=== PATIENT | male | born 1945 | race Caucasian/White ===

== ENCOUNTER 2020-06-25 09:32 | Outpatient (REF) | payer MEDICARE, SELFPAY ==
[2020-06-25 10:10] LABS: MANUAL DIFF FLAG NO
[2020-06-25 10:12] LABS: Basophils Absolute Auto 0.1 X10*3/uL (0.0-0.2); Basophils Percent Auto 0.9 % (0-2); Eosinophils Absolute Auto 0.4 X10*3/uL (0.0-0.4); Eosinophils Percent Auto 4.3 % (0-4); Hematocrit 49.4 % (42-52); Hemoglobin 16.6 g/dl (14.0-18.0); Imm Gran Abs Auto 0.02 X10*3/uL (0.00-0.03); Imm Gran Pct Auto 0.2 % (0.0-0.4); Lymphocytes Percent Auto 24.7 % (20-40); Mean Corpuscular HGB Conc 33.6 g/dl (31.0-36.0); Mean Corpuscular Hemoglobin 31.2 pg (27.0-33.0); Mean Corpuscular Volume 92.9 fL (80-98); Mean Platelet Volume 10.9 fL (9.4-12.4); Monocytes Absolute Auto 0.6 X10*3/uL (0.1-1.2); Neutrophils Absolute Auto 5.2 X10*3/uL (2.0-8.3); Neutrophils Percent Auto 62.9 % (45-73); Platelet Count 237 X10*3/uL (160-400); Red Blood Count 5.32 X10*6/uL (4.60-5.80); Red Cell Distribution Width 11.7 % (11.0-16.0); White Blood Count 8.2 X10*3/uL (4.8-10.8)
[2020-06-25 10:33] LABS: Alanine Aminotransferase 29 U/L (0-40); Albumin Level 4.3 g/dL (3.5-5.0); Alkaline Phosphatase 61 U/L (39-117); Anion Gap 12 (12-20); Aspartate Amino Transferase 28 U/L (5-37); Bilirubin Total 1.3 mg/dL (0.0-1.0); Blood Urea Nitrogen 13 mg/dL (9-16); Calcium 8.9 mg/dL (8.4-10.2); Carbon Dioxide 28 mmol/L (22-29); Chloride 104 mmol/L (96-108); Cholesterol 117 mg/dL; Estimated Glomerular Filt Rate > 60; Glucose Fasting 98 mg/dL (60-99); HDL Cholesterol 40 mg/dL; LDL Cholesterol Calculated 56 mg/dl; Potassium 4.6 mmol/l (3.3-5.1); Sodium 139 mmol/L (135-145); Total Protein 7.3 g/dL (6.5-8.0); Triglycerides 108 mg/dL
[2020-06-25 10:50] LABS: Glucose Urine UA NEG (NEG); Leukocyte Esterase Urine NEG (NEG); Nitrite Urine NEG (NEG); Specific Gravity - Urine 1.025 (1.005-1.025); Urine Blood NEG (NEG); Urine Ketones NEG (NEG); Urine Protein NEG (NEG-TRACE)
[2020-06-25 10:51] LABS: Appearance Urine CLEAR; Color Urine YELLOW
[2020-06-25 10:52] LABS: Prostate Specific Antigen 1.49 ng/mL (<0.05-4.0)
== END 2020-06-25 09:33 | disposition home or self-care (01) ==
LOC: HO.10HDL 09:32
PROVIDERS: PCP Internal Medicine; Visit Provider Internal Medicine
DX: I25.10 Atherosclerotic heart disease of native coronary artery without angina pectoris (principal); I10 Essential (primary) hypertension; N40.0 Benign prostatic hyperplasia without lower urinary tract symptoms; E78.00 Pure hypercholesterolemia, unspecified
CPT/HCPCS: 36415; 80053; 80061; 81003; 84153; 85025

== ENCOUNTER 2020-10-23 06:53 | Day surgery (SDC) | payer MEDICARE, SELFPAY ==
[2020-10-16 10:50] VITALS: BMI 31.1
--- NOTE | 2020-10-18 13:45 | HO.ANESPROP2 ---
Documented by User: Teri Casanova 10/19/20 09:43 HPI - Anesthesia Eval Consult details Narrative: 74yo M for Colonoscopy 01/2020 Cardiol OV - stable for 2 year f/u [facility] Past Medical History Medical History CAD (coronary artery disease) Elevated cholesterol HTN (hypertension) Hx of gout On beta jorden at home Surgical History Surgical History Hx of colonoscopy S/P coronary artery stent placement Social History Social History Are you a primary residential care facility manager to a significant other at home: No Do you presently have visiting nurse or other home services: No Smoking Status: Never smoker Use of substances other than those prescribed or required for medical reasons: No Have you been hit, kicked, punched, or otherwise hurt by someone within the past year? If so, by whom?: No Advance Directives: No Advance Directives Information Provided: No Advance Directives on File: No Recently lost weight without trying: No Meds Allergies Allergy/AdvReac Type Severity Reaction Status Date / Time No Known Allergies Allergy Unverified 10/15/20 15:52 Home Medications Medication Instructions Recorded Confirmed Last Taken Type amlodipine-benazepril 1 cap PO DAILY 10/15/20 10/15/20 Unknown History aspirin [Aspir-81] 81 mg PO DAILY 10/15/20 10/15/20 Unknown History atorvastatin 1 tab PO DAILY 10/15/20 10/15/20 Unknown History metoprolol succinate 1 tab PO DAILY 10/15/20 10/15/20 Unknown History kguinjzzyiqf-[id number]-[id number] 1 tab PO DAILY 10/15/20 10/15/20 Unknown History [Multivitamin 50 Plus] Exam Exam Date and Time: October 18, 2020 1345 Height,Weight and Vital Signs: Height 6 ft Weight 104.326 kg Narrative Narrative: EKG 01/2020 SB at [address]-T changes Assessment and Plan Assessment Anesthesia Assessment: Chart Reviewed Documented by User: Simi Galo 10/23/20 07:45 [facility] Past Medical History Medical History CAD (coronary artery disease) Elevated cholesterol HTN (hypertension) Hx of gout On beta jorden at home Surgical History Surgical History Hx of colonoscopy S/P coronary artery stent placement Social History Social History Are you a primary residential care facility manager to a significant other at home: No Do you presently have visiting nurse or other home services: No Smoking Status: Never smoker Use of substances other than those prescribed or required for medical reasons: No Have you been hit, kicked, punched, or otherwise hurt by someone within the past year? If so, by whom?: No Advance Directives: No Advance Directives Information Provided: No Advance Directives on File: No Recently lost weight without trying: No Meds Allergies Allergy/AdvReac Type Severity Reaction Status Date / Time No Known Allergies Allergy Unverified 10/15/20 15:52 Home Medications Medication Instructions Recorded Confirmed Last Taken Type amlodipine-benazepril 1 cap PO DAILY 10/15/20 10/15/20 Unknown History aspirin [Aspir-81] 81 mg PO DAILY 10/15/20 10/15/20 Unknown History atorvastatin 1 tab PO DAILY 10/15/20 10/15/20 Unknown History metoprolol succinate 1 tab PO DAILY 10/15/20 10/15/20 Unknown History [id number] 1 tab PO DAILY 10/15/20 10/15/20 Unknown History [Multivitamin 50 Plus] Exam Airway Mallampati Class: II TM Dist: >3cm Neck ROM: Full Assessment and Plan Assessment Anesthesia Assessment: Anesthesia Plan Discussed and Chart Reviewed Final Anesthetic Review NPO: Yes ASA Class: III Final Preanesthetic Review: No Changes in Pt Med Stat, Meds/Allgs Chart Reviewed, Consent Obtained/Reviewed and Anes Risks/Benef Reviewed Patient Risk: Low Procedure Risk: Low Assessment/Block/Sedation in SS: Assess/Block/Sedation- Anesthetic Plan Anesthetic Plan: MAC: Disposition: Standard PACU
[2020-10-23 07:07] VITALS: BP 146/79; PULSE 66; RESP 18; TEMP 36.2; O2SAT 97
[2020-10-23] MEDS: Lactated Ringers 1,000 ML 100 ML IVCONT (07:33)
--- NOTE | 2020-10-23 07:57 | P.HPSUR_ITS ---
Pre-Procedural Eval Section B Chief Complaint: screening Details of Present Illness: screening Relevant Family History (Specify if Yes): No Relevant Social History: None Present Medications: None Medical History: No relevant PMH History of Previous Operations: No relevant previous surgery Allergies: Allergies Allergy/AdvReac Type Severity Reaction Status Date / Time No Known Allergies Allergy Unverified 10/15/20 15:52 Review of Systems Sugical H&P ROS: Negative: Constitution, Cardiovascular, Respiratory, Neurological, Psychiatric, Hem-Onc, Allergic/Immunologic, Gastrointestinal, Genitourinary, Musculoskeletal, Integumentary, Endocrine and Eyes/Ears/No se/Throat Exam Surgical H&P Exam: Normal: HEENT, Normal: Heart, Normal: Lungs, Normal: Extremities, Normal: Abdomen, Normal: Skin and Normal: Neurological Plan Diagnosis/Plan: Unchanged I have reviewed the history and physical and performed a pertinent physical examination on my patient. No changes have occurred unless specified.
[2020-10-23 08:30] VITALS: BP 108/65; PULSE 52; RESP 16; TEMP 36.3; O2SAT 94
--- NOTE | 2020-10-23 08:35 | PM.OP ---
Brief Operative Note Date of Service: 10/23/20 Pre-op diagnosis: screening Post-op diagnosis: other (colon polyps) Procedure: colonoscopy Surgeon: Jethro Lopez Anesthesia: MAC Estimated blood loss (mL): 5 Pathology: other (polyps x3) Condition: stable Disposition: PACU
[2020-10-23 08:45] VITALS: BP 126/77; PULSE 53; RESP 17; TEMP 36.3; O2SAT 96
--- NOTE | 2020-10-23 09:18 | OP_ITS ---
SURGEON: Jethro Lopez MD INDICATIONS: Colon cancer screening. PREOPERATIVE DIAGNOSIS: POSTOPERATIVE DIAGNOSIS: PROCEDURE PERFORMED: Colonoscopy to the terminal ileum with snare polypectomy and biopsy. ESTIMATED BLOOD LOSS: COMPLICATIONS: ANESTHESIA: Medications, monitored anesthesia care. ASSISTANTS: SPECIMENS: DESCRIPTION OF PROCEDURE: History and physical performed. The risks and benefits of the procedure were explained to the patient. Informed consent was obtained. The patient was placed in left lateral decubitus position. A digital rectal exam was performed and was found to be normal. The Olympus pediatric video colonoscope was introduced into the rectum and advanced to the cecum without difficulty. The cecum was identified by transillumination, palpation, and identification of ileocecal valve. Examination was performed and the scope was removed. He tolerated the procedure well and was taken to the recovery area in stable condition. FINDINGS: The terminal ileum was examined and appeared normal. The visualized colonic mucosa was within normal limits without evidence of masses or ulcers. Three polyps were identified and removed. The first was located at 45 cm measuring approximately 8 mm and was removed with snare. The second was located at 35 cm measuring less than 5 mm and was removed with biopsy forceps. The third was located at 20 cm, measured 6 mm, and was removed with a snare. No other polyps were identified. The quality of the prep was good. Retroflexed examination did show some small internal hemorrhoids. IMPRESSION: Colon polyps. RECOMMENDATION: Follow up the biopsy results. MD LUIS MIGUEL Hunt/BOUCHRA / [id number]
== END 2020-10-23 09:30 | disposition home or self-care (01) ==
PROVIDERS: PCP Internal Medicine; Visit Provider Internal Medicine Gastroenterology
PROC: 0DJD8ZZ Inspection of Lower Intestinal Tract, Via Natural or Artificial Opening Endoscopic (ICD-10-PCS; CPT 45378; principal; 2020-10-23 08:00)
DX: Z12.11 Encounter for screening for malignant neoplasm of colon (principal); D12.5 Benign neoplasm of sigmoid colon; K63.5 Polyp of colon; K64.8 Other hemorrhoids; I10 Essential (primary) hypertension; Z79.899 Other long term (current) drug therapy
CPT/HCPCS: 45385; 45380; 88305

== ENCOUNTER 2021-04-25 16:27 | Outpatient (REF) | payer MEDICARE, SELFPAY ==
[2021-04-25 16:47] LABS: MANUAL DIFF FLAG NO
[2021-04-25 16:56] LABS: Basophils Absolute Auto 0.1 X10*3/uL (0.0-0.2); Basophils Percent Auto 0.7 % (0-2); Eosinophils Absolute Auto 0.5 X10*3/uL (0.0-0.4); Eosinophils Percent Auto 5.2 % (0-4); Hematocrit 47.9 % (42-52); Hemoglobin 16.3 g/dl (14.0-18.0); Imm Gran Abs Auto 0.03 X10*3/uL (0.00-0.03); Imm Gran Pct Auto 0.3 % (0.0-0.4); Lymphocytes Percent Auto 23.5 % (20-40); Mean Corpuscular Hemoglobin 31.3 pg (27.0-33.0); Mean Corpuscular Volume 91.9 fL (80-98); Mean Platelet Volume 10.8 fL (9.4-12.4); Monocytes Absolute Auto 0.8 X10*3/uL (0.1-1.2); Neutrophils Absolute Auto 5.3 X10*3/uL (2.0-8.3); Neutrophils Percent Auto 61.3 % (45-73); Platelet Count 229 X10*3/uL (160-400); Red Blood Count 5.21 X10*6/uL (4.60-5.80); Red Cell Distribution Width 12.2 % (11.0-16.0); White Blood Count 8.7 X10*3/uL (4.8-10.8)
[2021-04-25 17:24] LABS: Anion Gap 12 (12-20); Blood Urea Nitrogen 14 mg/dL (9-16); Calcium 9.5 mg/dL (8.4-10.2); Carbon Dioxide 27 mmol/L (22-29); Chloride 107 mmol/L (96-108); Estimated Glomerular Filt Rate > 60; Glucose Random 94 mg/dL (60-115); Potassium 4.7 mmol/L (3.3-5.1); Sodium 141 mmol/L (135-145)
== END 2021-04-25 16:28 | disposition home or self-care (01) ==
LOC: HO.LAB 16:27
PROVIDERS: PCP Internal Medicine; Visit Provider Internal Medicine
DX: Z01.818 Encounter for other preprocedural examination (principal)
CPT/HCPCS: 36415; 80048; 85025

== ENCOUNTER 2021-06-25 09:40 | Outpatient (REF) | payer MEDICARE, SELFPAY ==
[2021-06-25 11:04] LABS: Alanine Aminotransferase 27 U/L (0-40); Albumin Level 4.2 g/dL (3.5-5.0); Alkaline Phosphatase 63 U/L (39-117); Anion Gap 12 (12-20); Aspartate Amino Transferase 26 U/L (5-37); Bilirubin Total 1.6 mg/dL (0.0-1.0); Blood Urea Nitrogen 14 mg/dL (9-16); Calcium 9.4 mg/dL (8.4-10.2); Carbon Dioxide 28 mmol/L (22-29); Chloride 106 mmol/L (96-108); Cholesterol 127 mg/dL; Estimated Glomerular Filt Rate > 60; Glucose Fasting 95 mg/dL (60-99); HDL Cholesterol 38 mg/dL; LDL Cholesterol Calculated 66 mg/dl; Potassium 4.6 mmol/L (3.3-5.1); Sodium 141 mmol/L (135-145); Total Protein 7.6 g/dL (6.5-8.0); Triglycerides 115 mg/dL
== END 2021-06-25 09:41 | disposition home or self-care (01) ==
LOC: HO.10HDL 09:40
PROVIDERS: Visit Provider Internal Medicine
DX: Z12.5 Encounter for screening for malignant neoplasm of prostate (principal); N40.0 Benign prostatic hyperplasia without lower urinary tract symptoms; E78.00 Pure hypercholesterolemia, unspecified; I25.10 Atherosclerotic heart disease of native coronary artery without angina pectoris
CPT/HCPCS: 36415; 80053; 80061; 84153

== ENCOUNTER → 2021-08-21 10:12 | Outpatient (BNVA) | payer MEDICARE, SELFPAY | PROVIDERS: PCP Internal Medicine; Visit Provider Orthopaedic Surgery | DX: M19.042 Primary osteoarthritis, left hand (principal); M67.442 Ganglion, left hand | CPT/HCPCS: 99202 ==

== ENCOUNTER 2022-06-25 10:05 | Outpatient (REF) | payer MEDICARE, SELFPAY ==
[2022-06-25 10:33] LABS: MANUAL DIFF FLAG NO
[2022-06-25 10:47] LABS: Basophils Absolute Auto 0.1 X10*3/uL (0.0-0.2); Basophils Percent Auto 0.6 % (0-2); Eosinophils Absolute Auto 0.3 X10*3/uL (0.0-0.4); Eosinophils Percent Auto 3.3 % (0-4); Hematocrit 51.5 % (42.0-52.0); Hemoglobin 17.2 g/dl (14.0-18.0); Imm Gran Abs Auto 0.04 X10*3/uL (0.00-0.03); Imm Gran Pct Auto 0.4 % (0.0-0.4); Lymphocytes Absolute Auto 2.2 X10*3/uL (1.2-4.9); Lymphocytes Percent Auto 24.1 % (20-40); Mean Corpuscular HGB Conc 33.4 g/dl (31.0-36.0); Mean Platelet Volume 10.9 fL (9.4-12.4); Monocytes Absolute Auto 0.7 X10*3/uL (0.1-1.2); Monocytes Percent Auto 7.5 % (2-11); Neutrophils Absolute Auto 5.8 x10*3/uL (2.0-8.3); Neutrophils Percent Auto 64.1 % (45-73); Platelet Count 252 X10*3/uL (160-400); Red Blood Count 5.54 X10*6/uL (4.60-5.80); Red Cell Distribution Width 11.9 % (11.0-16.0)
[2022-06-25 11:28] LABS: Alanine Aminotransferase 24 U/L (0-40); Albumin Level 4.3 g/dL (3.5-5.0); Alkaline Phosphatase 66 U/L (39-117); Anion Gap 12 (12-20); Aspartate Amino Transferase 25 U/L (5-37); Bilirubin Total 1.8 mg/dL (0.0-1.0); Blood Urea Nitrogen 15 mg/dL (9-16); Calcium 9.3 mg/dL (8.4-10.2); Carbon Dioxide 27 mmol/L (22-29); Chloride 106 mmol/L (96-108); Cholesterol 117 mg/dL; Estimated Glomerular Filt Rate > 60; Glucose Fasting 94 mg/dL (60-99); HDL Cholesterol 36 mg/dL; LDL Cholesterol Calculated 59 mg/dl; Potassium 4.8 mmol/L (3.3-5.1); Prostate Specific Antigen Scr 1.54 ng/mL (<0.05-4.0); Sodium 140 mmol/L (135-145); Total Protein 7.3 g/dL (6.5-8.0); Triglycerides 110 mg/dL
== END 2022-06-25 10:06 | disposition home or self-care (01) ==
LOC: HO.10HDL 10:05
PROVIDERS: Visit Provider Internal Medicine
DX: Z00.00 Encounter for general adult medical examination without abnormal findings (principal); Z12.5 Encounter for screening for malignant neoplasm of prostate
CPT/HCPCS: 36415; 80053; 80061; 84153; 85025

== ENCOUNTER 2022-07-30 16:05 | Outpatient (REF) | payer MEDICARE, SELFPAY ==
--- NOTE | ~2022-07-30 | XR_ITS ---
EXAMINATION: XR HAND, LEFT CLINICAL INFORMATION: Pain. COMPARISON: None TECHNIQUE: PA, lateral, and oblique views of the left hand. FINDINGS: Bony alignment and mineralization are normal. There is a neutral ulnar variance. There is mild osteoarthritic change of the interphalangeal joint of the thumb. Moderate to marked osteoarthritic change is seen of the second through fifth distal interphalangeal joints. There is mild osteoarthritic change of the third proximal interphalangeal joint. There is degenerative change of the second through fifth metacarpophalangeal joints. Some focal erosion is noted of the second, fourth and fifth proximal phalangeal bases. There is moderate osteoarthritic change of the first carpometacarpal joint. No fracture or dislocation is seen. There is no focal soft tissue swelling, gas or foreign body. XR/XR hand LT min 3V IMPRESSION: There are arthritic changes of the left hand and wrist. Metacarpophalangeal joint marginal erosions raise the possibility of rheumatoid arthritis. Please correlate clinically.
== END 2022-07-30 16:06 | disposition home or self-care (01) ==
LOC: HO.HOSX 16:05
PROVIDERS: Visit Provider Orthopaedic Surgery
DX: M67.442 Ganglion, left hand (principal); M19.042 Primary osteoarthritis, left hand
CPT/HCPCS: 73130; 99212

== ENCOUNTER 2022-08-28 08:49 | Day surgery (SDC) | payer MEDICARE, SELFPAY ==
[2022-08-28 09:29] VITALS: BP 162/80; PULSE 58; RESP 18; TEMP 36.6; O2SAT 95
[2022-08-28 09:30] VITALS: BMI 30.5
--- NOTE | 2022-08-28 09:31 | W.PM.OPN ---
Operative Note Operative Note Date of Service: 08/28/22 Narrative: Operative Note Preop diagnosis: 1. 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 same Procedure: 1. Left thumb mucous cyst excision 2. Thumb DIP joint arthrotomy and excision of osteophytes. 3. Left index finger mucous cyst excision 4. Left index finger D IP joint arthrotomy and excision of osteophytes Surgeon: Tamara Lindquist MD Anesthesia: Digital block using 1% lidocaine with epinephrine Findings: mucous cysts, and osteoarthritis EBL: Less than 5 mL Tourniquet time: None Specimens: None Complications: None Disposition: Brought to recovery room in stable condition Plan: Follow-up for 7-10 days for wound check and suture removal Indications: The patient is 76 years old, with left thumb and left index finger D IP joint osteoarthritis and mucous cysts that has been unresponsive to nonoperative management. The risks and benefits of operative treatment including but not limited to risk of damage to blood vessels, nerves, tendons, infection, persistent pain, persistent symptoms, recurrence or possible need for additional surgery were discussed with the patient and the patient wishes to proceed with surgery. Procedure: Once consent was obtained digital blocks were performed in the preop area using a combination of 1% lidocaine with epinephrine. The patient was then brought back to the operating suite and placed on the operative table in supine position. A tourniquet was applied to the proximal aspect of the left upper extremity and the limb was prepped and draped in a standard surgical fashion. Once assured that we had a good block,? an L-shaped incision was made over the dorsal aspect of the left thumb? distal phalanx.? The incision was made through the skin to the subcutaneous tissues using a #15 blade.? Careful dissection was made down to the level of the? mucous cyst and extensor mechanism using iris scissors.? The cyst was filled with clear viscous fluid consistent with a ganglion.? It was dissected free from the surrounding tissues and removed from the finger.? ? An arthrotomy was performed on the ulnar? side of the extensor mechanism at the D IP joint.? The periarticular osteophytes were excised using a rongeur.? Once satisfied,? the wound was copiously irrigated with normal saline and hemostasis was obtained with a brief period of local pressure and bipolar electrocautery.?? Once assured that we had a good block, an L-shaped incision was made over the dorsal aspect of the left index finger distal phalanx. The incision was made through the skin to the subcutaneous tissues using a #15 blade. Careful dissection was made down to the level of the mucous cyst and extensor mechanism using iris scissors. The cyst was filled with clear viscous fluid consistent with a ganglion. It was dissected free from the surrounding tissues and removed from the finger. An arthrotomy was performed on the ulnar side of the extensor mechanism at the D IP joint. The periarticular osteophytes were excised using a rongeur. Once satisfied, the wound was copiously irrigated with normal saline and hemostasis was obtained with a brief period of local pressure. The skin edges were reapproximated with some 5.0 Prolene suture material and sterile dressings were applied. The patient appears to have tolerated the procedure well and with no complications. All digits were well vascularized at the conclusion of the case.
[2022-08-28 13:43] VITALS: BP 140/69; PULSE 56; RESP 16; O2SAT 96
== END 2022-08-28 13:49 | disposition home or self-care (01) ==
PROVIDERS: PCP Internal Medicine; Visit Provider Orthopaedic Surgery
PROC: (CPT 26236; principal; 2022-08-28 10:40)
DX: M67.442 Ganglion, left hand (principal); M19.042 Primary osteoarthritis, left hand; M25.742 Osteophyte, left hand; I25.10 Atherosclerotic heart disease of native coronary artery without angina pectoris; Z98.61 Coronary angioplasty status; I10 Essential (primary) hypertension; E78.00 Pure hypercholesterolemia, unspecified; Z79.899 Other long term (current) drug therapy; Z79.82 Long term (current) use of aspirin
CPT/HCPCS: 26236 ×2; 26160 ×2; 88304; J0171

== ENCOUNTER → 2022-09-10 13:18 | Outpatient (BNVA) | payer MEDICARE, SELFPAY | PROVIDERS: PCP Internal Medicine; Visit Provider Orthopaedic Surgery | DX: Z13.89 Encounter for screening for other disorder (principal) | CPT/HCPCS: 99212 ==

== ENCOUNTER 2023-07-09 07:05 | Outpatient (REF) | payer MEDICARE, SELFPAY | END 2023-07-09 07:06 | disposition home or self-care (01) | LOC: HO.WFDLDS 07:05 | PROVIDERS: Visit Provider Internal Medicine | DX: I25.10 Atherosclerotic heart disease of native coronary artery without angina pectoris (principal); I10 Essential (primary) hypertension; E78.00 Pure hypercholesterolemia, unspecified; N40.0 Benign prostatic hyperplasia without lower urinary tract symptoms; Z12.5 Encounter for screening for malignant neoplasm of prostate | CPT/HCPCS: 36415; 80053; 80061; 84153; 85025 ==

== ENCOUNTER 2024-06-22 08:32 | Outpatient (AMB) | payer MEDICARE, SELFPAY ==
--- NOTE | 2024-06-22 08:41 | MHC.OFFVIS ---
Intake Visit Reasons: OV- Left thumb ganglion cyst Intake Note: Duncan 76 yr old male presents today for his S/P left Thumb & index finger cyst exc from 08/28/22. States his thumb never fully healed and his cyst continues to have a recurrent cyst that he pops approx 2x a month. Denies numbness or tingling. Allergies No Known Allergies Allergy (Unverified 06/22/24 08:51) HPI HPI OV- Left thumb ganglion cyst: Details: Duncan is a 78 year old right hand dominant man who presents S/P left thumb & index finger DIP joint arthrotomy, excision of osteophytes & mucous cyst excision, DOS: 08/28/22. He complains that the cyst on his thumb has been constantly returning since his surgery. He says he often ruptures and drains this at home every 2-3 months, sometimes on its own and sometimes he ruptures this himself when it is too bothersome. He would like to discuss treatment options. He denies any pain in his thumb normally, and says there is only some present when the cyst is very large. No complaints in regards to his index finger. He says his last surgery involved him waiting for 6+ hours at the hospital, and he says a repeat of this would not be tolerable as he cares for his and is unable to leave her alone for a prolonged period of time. [facility] Medical History CAD (coronary artery disease) Elevated cholesterol HTN (hypertension) Hx of gout On beta jorden at home Surgical History Hx of colonoscopy S/P coronary artery stent placement Social History Are you a primary manager critical care unit to a significant other at home: No Do you presently have visiting nurse or other home services: No Current occupational status: retired Current occupation: rt hand Review of Systems Const All systems reviewed & are unremarkable except as noted in HPI and below Physical Exam Const General: no acute distress and alert Orientation/consciousness: patient oriented x3 Neuro General: patient oriented x3 Extrem Other: Evaluation of left Upper Extremity: The patient is alert, oriented, and in no acute distress Neuro: Median, ulnar, radial nerves motor and sensory grossly intact. Vascular: Cap refill brisk. ROM: Can bring fingers closed to a fist and back out to full or nearly full extension. He has good active flexion extension of the thumb without pain. He has a ruptured ~7mm diameter cystic mass over the dorsal ulnar aspect of the left thumb IP joint. This is minimally tender to palpation. Good flexion and extension at the IP joint and otherwise, the IP joint itself is not tender. No erythema swelling or drainage He has visible and palpable osteophytes about several of his DIP joints including the IP joint of this thumb. Radiographs: Three views of his left hand from 07/30/2022 were reviewed by me today in clinic. Regarding the IP joint of the thumb we do see a dorsal osteophyte on the lateral view that may be associated with the extensor tendon. It is hard to tell. He has also got essentially complete loss of the joint space on the ulnar aspect of the joint. Psych Appearance: grossly normal Affect: normal affect Attitude: cooperative Assessment & Plan Assessment & Plan (1) Mucous cyst of digit of left hand: Code(s): M67.442 - Ganglion, left hand Category: Medical Plan Assessment and plan: 1. Left thumb IP joint ganglion cyst reoccurance, S/P excision of mucous cyst DOS: 08/28/22 2. Left thumb IP joint osteoarthritis S/P DIP joint arthrotomy, excision of osteophytes Good active flexion extension. Joint itself is not typically painful. He says he only typically has pain when the cyst has grown in size. I educated him about this condition I discussed operative and non-operative treatment options including arthrodesis. He understands that an arthrodesis is the only sure way to make sure the cyst does not come back, but we both agree that an arthrodesis is not our best option. The patient would like to proceed with surgery The risks and benefits of operative treatment were discussed with the patient and the patient wishes to proceed with surgery. These risks include, but are not limited to risk of damage to blood vessels, nerves, tendons, infection, recurrence, incomplete relief of preoperative symptoms, persistent pain, possible need for further surgery and the risks associated with regional blocks and anesthesia. The plan is to take the patient to the operating room sometime in the next few weeks for the following procedures: 1. Left thumb repeat mucous cyst excision, under local All of the preoperative paperwork including the consent was reviewed today. All the patient's questions were answered. The patient understands that they will be contacted by our machine cloth trimmer soon to schedule this procedure He denies Diabetes, blood thinners, asthma, heart, lung, kidney issues Please note that when he had this done the 1st time he ended up having to wait for 6 hours in preop hold due to an emergency surgery that needed to go ahead of us. Unfortunately, he has a who needs assistance and should not be left at home alone for that long. 3. Left index finger DIP joint ganglion cyst, S/P excision DOS: 08/28/22 No complaints Scribed for Tamara Lindquist MD by Grant Rice, medical accounts receivable specialist, on 06/22/24 at 9:00 AM, EST. Coding Level of Care Code Est Pt Level 4 (23763) Diagnoses Mucous cyst of digit of left hand M67.442
--- OUTSIDE RECORDS SUMMARY | 2024-06-22 08:50 | XMS_ITS | Patient Health Record ---
Author Organization [facility] Address [address] [place] [id number] Care Team Providers Care Celebrity Manager Name Role Phone Ricardo George MD Primary Care Provider Jethro Blackman Jr Unavailable REASON FOR REFERRAL No Information MEDICATIONS Medication SIG (Take, Route, Frequency, Duration) Notes Start Date End Date Status Aspirin Adult Low Dose 81 MG 1 tablet Orally Once a day for 30 day(s) Active Multivitamin Adult - as directed Orally Active MiraLax (colon prep) 8.3 ounce (238) grams mixed with Gatorade or Crystal Light orally begin at 5:00 p.m. the day before the procedure for 1 day 08/08/2020 Active Atorvastatin Calcium 40 MG TAKE 1 TABLET BY MOUTH EVERY DAY Oral for 90 Active Metoprolol Succinate ER 25 MG TAKE 1 TABLET BY MOUTH EVERY DAY Oral for 90 Active amLODIPine Besy-Benazepril HCl 5-10 MG TAKE 1 CAPSULE BY MOUTH EVERY DAY Oral for 90 Active IMMUNIZATIONS Vaccine Route Administration Date Status Comme nts Influenza Unknown 04/05/2020 Administered SOCIAL HISTORY Tobacco Use: Social History Observation Description Date Details (start date - stop date) Never Smoker NA - NA Sex Assigned At : Social History Observation Description Sex Assigned At Unknown Tobacco Use/Smoking Question Answer Notes Patient is a nonsmoker Alcohol Screen Question Answer Notes Did you have a drink containing alcohol in the p ast year? No Points 0 Interpretation Negative PROBLEMS Problem Type ICD Code Onset Dates Problem Status W/U Status Risk SNOMED Code Notes Problem Colon cancer screening (Z12.11) Active confirmed 445950367 Problem Long-term use of aspirin therapy (Z79.82) Active confirmed 466932911 PLAN OF TREATMENT Future Test Test Name Order Date COLONOSCOPY 08/08/2020 Insurance Providers Payer Name Payer Address Payer Phone Subscriber Number Group Number Insured Name Patient Relationship to Insured Coverage Start Date Coverage End Date MEDICARE OF [place] [address] [place] [id number] SADE APONTE Self - patient is the insured [employer] ATTN CLAIMS [address] [place] [phone] [id number] SADE APONTE Self - patient is the insured MEDICAL (GENERAL) HISTORY Medical History History ICD Code coronary artery disease, laurie nt (LAD) 2017- Dr. 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 Hemant So 03/16/2018
== END 2024-06-22 09:30 | disposition home or self-care (01) ==
PROVIDERS: PCP Internal Medicine; Visit Provider Orthopaedic Surgery
DX: M67.442 Ganglion, left hand (principal)
CPT/HCPCS: 99214

== ENCOUNTER → 2024-06-22 08:32 | Outpatient (BNVA) | payer MEDICARE, SELFPAY | PROVIDERS: PCP Internal Medicine; Visit Provider Orthopaedic Surgery | DX: M67.442 Ganglion, left hand (principal) | CPT/HCPCS: 99212 ==

== ENCOUNTER 2024-07-08 09:51 | Outpatient (REF) | payer MEDICARE, SELFPAY ==
[2024-07-08 10:40] LABS: MANUAL DIFF FLAG NO
[2024-07-08 10:47] LABS: Appearance Urine Clear; Color Urine Yellow; Glucose Urine UA Negative (Negative); Leukocyte Esterase Urine Negative (Negative); Nitrite Urine Negative (Negative); Specific Gravity - Urine 1.015 (1.005-1.025); Urine Blood Negative (Negative); Urine Ketones Negative (Negative); Urine Protein Negative (Neg-Trace)
[2024-07-08 10:52] LABS: Basophils Absolute Auto 0.1 X10*3/uL (0.0-0.2); Basophils Percent Auto 0.9 % (0-2); Eosinophils Absolute Auto 0.3 X10*3/uL (0.0-0.4); Eosinophils Percent Auto 3.7 % (0-4); Hematocrit 49.7 % (42.0-52.0); Hemoglobin 16.7 g/dl (14.0-18.0); Imm Gran Abs Auto 0.02 X10*3/uL (0.00-0.03); Imm Gran Pct Auto 0.2 % (0.0-0.4); Lymphocytes Absolute Auto 1.9 X10*3/uL (1.2-4.9); Lymphocytes Percent Auto 23.9 % (20-40); Mean Corpuscular HGB Conc 33.6 g/dl (31.0-36.0); Mean Corpuscular Hemoglobin 30.9 pg (27.0-33.0); Mean Platelet Volume 10.9 fL (9.4-12.4); Monocytes Absolute Auto 0.6 X10*3/uL (0.1-1.2); Monocytes Percent Auto 7.4 % (2-11); Neutrophils Absolute Auto 5.2 x10*3/uL (2.0-8.3); Neutrophils Percent Auto 63.9 % (45-73); Platelet Count 248 X10*3/uL (160-400); Red Cell Distribution Width 12.2 % (11.0-16.0); White Blood Count 8.1 X10*3/uL (4.8-10.8)
[2024-07-08 11:04] LABS: Alanine Aminotransferase 34 U/L (0-40); Albumin Level 4.2 g/dL (3.5-5.0); Alkaline Phosphatase 72 U/L (39-117); Anion Gap 9 (12-20); Aspartate Amino Transferase 31 U/L (5-37); Bilirubin Total 1.2 mg/dL (0.0-1.0); Blood Urea Nitrogen 10 mg/dL (9-16); Calcium 8.8 mg/dL (8.4-10.2); Carbon Dioxide 26 mmol/L (22-29); Chloride 109 mmol/L (96-108); Cholesterol 129 mg/dL (<200); Estimated Glomerular Filt Rate > 60; Glucose Fasting 106 mg/dL (60-99); HDL Cholesterol 44 mg/dL (>40); LDL Cholesterol Calculated 69 mg/dL (<100); Potassium 4.3 mmol/L (3.3-5.1); Sodium 140 mmol/L (135-145); Total Protein 7.5 g/dL (6.5-8.0); Triglycerides 82 mg/dL (<150)
== END 2024-07-08 09:52 | disposition home or self-care (01) ==
LOC: HO.10HDL 09:51
PROVIDERS: Visit Provider Internal Medicine
DX: I25.10 Atherosclerotic heart disease of native coronary artery without angina pectoris (principal); I10 Essential (primary) hypertension; E78.00 Pure hypercholesterolemia, unspecified; N40.0 Benign prostatic hyperplasia without lower urinary tract symptoms
CPT/HCPCS: 36415; 80053; 80061; 81003; 85025

== ENCOUNTER → 2024-08-24 12:24 | Day surgery (SDC) | payer MEDICARE, SELFPAY ==
[2024-08-24 12:52] VITALS: BP 143/60; PULSE 49; RESP 16; TEMP 36.8; O2SAT 95; BMI 30.9
--- NOTE | 2024-08-24 13:43 | PC.NURSE ---
Patient in preop. Procedure on hold at this time as there is a small open area on the surgical site. Dr. Lindquist at bedside to discuss. Ride called. All belongings back with patient.
== END ==
LOC: HO.SSS 12:24
PROVIDERS: PCP Internal Medicine; Visit Provider Orthopaedic Surgery
DX: M67.442 Ganglion, left hand (principal); Z53.09 Procedure and treatment not carried out because of other contraindication
CPT/HCPCS: J0171; J2003

== ENCOUNTER 2025-01-09 13:07 | Outpatient (AMB) | payer MEDICARE, SELFPAY ==
--- NOTE | 2025-01-09 13:12 | MHC.PC.OV ---
Vital Signs 01/09/25 13:15 Height 6 ft Weight 106.141 kg BMI 31.7 BP 144/66 H Blood Pressure Location Lt brachial Position Sitting Respiration 17 Pulse 55 Pulse Source Pulse Oximeter Temp 97.7 F Temp Source Temporal Artery Scan Pulse Oximetry (%) 96 Oxygen Delivery Method Room Air Intake Visit Reasons: meds Contact Center Director Required: No Accompanied by: Self / Same As Patient Allergies No Known Allergies Allergy (Verified 01/09/25 13:12) HPI HPI Comments History of Present Illness Details 79-year-old male with history of hypertension, coronary artery disease, hyperlipidemia, BPH presents to the office today for management of chronic conditions and to establish care. CAD-s/p PCI with JEREMIAH to the LAD x2. Reports he had been asymptomatic and arterial disease was noted on imaging study. Denies any chest pain since. Continues on baby aspirin, statin, metoprolol Hypertension-blood pressure in the office today 144/66 Félix does report anxiety. Continues on amlodipine-benazepril 5-10 mg and metoprolol. Last blood pressure from previous PCP 128/74. BPH-lets controlled. Continues on tamsulosin Concerns: L neck pain- no known injury. Ongoing x several weeks without improvement. Waxes and wanes in severity. No triggers. Taking ibuprofen prn. Prior history sore neck. R glute/hamstring- no known injury, though has been digging holes and weeding. Ongoing x 2-3 weeks. Constant, sitting on something hard increases pain. No known recent injury to the area. He does work at the gym with weight lifting, possibly related to above. No weakness or paresthesias Health maintenance: Last screening colonoscopy for with tubular adenoma identified, 5 year follow-up advised. Dr. Lopez ROS: General: No fevers, malaise, unintentional weight loss HEENT: No blurred vision, diplopia. No sore throat, nasal congestion, rhinorrhea, sinus pain, ear pain Cardiovascular: No chest pain, palpitations, or leg edema Respiratory: No shortness of breath, wheezing, cough GI: No abdominal pain, nausea, vomiting, diarrhea, constipation, melena, hematochezia : No dysuria, hematuria, increased urinary frequency, decreased urinary output MSK: see hpi Neuro: No headaches, weakness, paresthesias Skin: No rashes or lesions EXAM: Constitutional - Awake and Alert, No apparent distress Eyes - PERRL Cardiovascular - S1S2, RRR, No edema Respiratory - Normal lung expansion, Normal respiratory effort, No respiratory distress, CTA bilaterally Extremities - no calf tenderness bilaterally, no swelling MSK - upper trapezius and neck nontender to palpation with full rom. ttp over the R ishial tuberosity, hamstring nontender Skin - Warm/Dry Neurological - Alert & oriented x3. 5/5 strength BUE and BLE Psychological - Appropriate affect PFSH Medical History (Updated 01/09/25 @ 13:24 by ANNA Sanchez) BPH (benign prostatic hyperplasia) Hx of gout On beta jorden at home Elevated cholesterol CAD (coronary artery disease) HTN (hypertension) Surgical History (Updated 01/04/25 @ 16:31 by Mary Grace Guerrero) Hx of colonoscopy (~10/23/20) S/P coronary artery stent placement Social History Are you a primary plant care worker to a significant other at home: No Do you presently have visiting nurse or other home services: No Current occupational status: retired Current occupation: rt hand Physical exam (Primary Care) Vital Signs: Last Vital Signs Temp 97.7 F 01/09/25 13:15 Pulse 55 01/09/25 13:15 Resp 17 01/09/25 13:15 BP 144/66 H 01/09/25 13:15 Pulse Ox 96 01/09/25 13:15 Oxygen Delivery Method Room Air 01/09/25 13:15 BMI result Body Mass Index 31.7 Coding Level of Care Code New Pt Level 4 (88625) Complex EM visit Add On G2211 Diagnoses BPH (benign prostatic hyperplasia) N40.0 HTN (hypertension) I10 Elevated cholesterol E78.00 CAD (coronary artery disease) I25.10 Assessment & Plan Assessment & Plan (1) BPH (benign prostatic hyperplasia): Code(s): N40.0 - Benign prostatic hyperplasia without lower urinary tract symptoms Category: Medical Plan: Stable. Continue Flomax (2) HTN (hypertension): Code(s): I10 - Essential (primary) hypertension Category: Medical Plan: Slightly elevated but possibly related to white coat syndrome. Previous blood pressure from prior PCP reports within normal limits. Continue metoprolol and amlodipine-benazepril. Low-sodium diet check basic metabolic panel (3) Elevated cholesterol: Code(s): E78.00 - Pure hypercholesterolemia, unspecified Category: Medical Plan: Controlled. Continue atorvastatin (4) CAD (coronary artery disease): Comment: Stent [address] Yadav Code(s): I25.10 - Atherosclerotic heart disease of wiyot coronary artery without angina pectoris Category: Medical Plan: Stable. Continue baby aspirin, atorvastatin, metoprolol. Plan Reports he would like to be followed in the [place] office. Will call for an appointment. Declines physical therapy for suspected trapezius spasm and bone contusion. Can use Tylenol as needed as well as heat or ice. Given gentle exercises to perform at home. Orders: Orders Basic Metabolic Panel Today I10 - Essential (primary) hypertension
[2025-01-09 13:15] VITALS: BP 144/66; PULSE 55; RESP 17; TEMP 36.5; O2SAT 96; BMI 31.7
--- OUTSIDE RECORDS SUMMARY | 2025-01-09 13:35 | XMS_ITS | Patient Health Record ---
Author Organization [facility] Address [address] [place] [id number] Care Team Providers Care Post Graduate Intern Name Role Phone Ricardo George MD Primary Care Provider Jethro Blackman Jr Unavailable Reason For Referral No Information Medications Medication SIG (Take, Route, Frequency, Duration) Notes Start Date End Date Status Aspirin Adult Low Dose 81 MG 1 tablet Orally Once a day for 30 day(s) Active Multivitamin Adult - as directed Orally Active MiraLax (colon prep) 8.3 ounce ((238) grams mixed with Gatorade or Crystal Light [...] MOUTH EVERY DAY Oral for 90 Active Immunizations Vaccine Route Administration Date Status Comme nts Influenza Unknown 04/05/2020 Administered Social History Tobacco Use: Social History Observation Description Date Details (start date - stop date) Never Smoker NA - NA Tobacco Use/Smoking Question Answer Notes Patient is a nonsmoker Alcohol Screen Question Answer Notes Did you have a drink containing alcohol in the p ast year? No Points 0 Interpretation Negative Problems Problem Type SNOMED Code ICD Code Onset Dates Problem Status W/U Status Risk Notes Problem 989221228 Colon cancer screening (Z12.11) Active confirmed Problem 992208187 Long-term use of aspirin therapy (Z79.82) Active confirmed Plan Of Treatment Future Test Test Name Order Date COLONOSCOPY 08/08/2020 Insurance Providers Payer Name Payer Address Payer Phone Subscriber Number Group Number Insured Name Patient Relationship to Insured Coverage Start Date Coverage End Date MEDICARE OF [place] [address] [place] [id number] SADE APONTE Self - patient is the insured [employer] ATT[employer] CLAIMS [address] [place] [address] [id number] SADE APONTE Self - patient is the insured Medical (General) History Medical History History ICD Code coronary artery disease, laurie nt (LAD) 2018- Dr. 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 Hemant So 03/16/2018
== END 2025-01-09 15:06 | disposition home or self-care (01) ==
LOC: HO.HMCHD 13:08
PROVIDERS: PCP Internal Medicine; Visit Provider Physician Assistant
DX: N40.0 Benign prostatic hyperplasia without lower urinary tract symptoms (principal); I10 Essential (primary) hypertension; E78.00 Pure hypercholesterolemia, unspecified; I25.10 Atherosclerotic heart disease of native coronary artery without angina pectoris

== ENCOUNTER → 2025-01-09 13:07 | Outpatient (BNVA) | payer MEDICARE, SELFPAY | PROVIDERS: PCP Internal Medicine; Visit Provider Physician Assistant | DX: N40.0 Benign prostatic hyperplasia without lower urinary tract symptoms (principal); I10 Essential (primary) hypertension; E78.00 Pure hypercholesterolemia, unspecified; I25.10 Atherosclerotic heart disease of native coronary artery without angina pectoris; Z79.82 Long term (current) use of aspirin; Z79.899 Other long term (current) drug therapy | CPT/HCPCS: 99202 ==